=== PATIENT | female | born 1985 | race Caucasian/White ===

== ENCOUNTER → 2024-12-08 10:10 | Outpatient (CLI) | payer OTHER, SELFPAY ==
--- NOTE | 2024-12-08 10:30 | DI.US.S_ITS ---
US breast RT limited, MM diagnostic mammo BI: 12/08/2024 BI-RADS: 5 CLINICAL: 39-year old female for bilateral diagnostic mammogram and right diagnostic breast ultrasound. Tyrer-Cuzick lifetime risk of 20.1%. Current reported family history of breast cancer: mother and maternal aunt. The patient reports a palpable abnormality (less than 1 month) and pain (less than 1 month) in the right breast. PRIOR EXAMS: None. This is a baseline examination. MAMMOGRAPHY TECHNIQUE: 2D and 3D (tomosynthesis) digital mammographic views obtained, with additional images as needed for full coverage. Current study was also evaluated with a Computer Aided Detection (CAD) system. ULTRASOUND TECHNIQUE Real-time palmer scale and color doppler imaging of the area of clinical interest was performed with image documentation. Right targeted breast ultrasound of the area of clinical interest and the axilla was performed with image documentation. DENSITY B. There are scattered areas of fibroglandular density. MAMMOGRAPHY FINDINGS Right (finding-1): Outer at 9:00, Middle depth, measuring 1.9cm: Correlating with palpable lump and pain/tenderness there is a spiculated, irregular, equal- density mass present. Right (finding-2): MLO only, Axilla: There is a suspicious lymph node present. Left: No suspicious mass, asymmetry, microcalcification, or other abnormality seen. ULTRASOUND FINDINGS Right (finding-1): Upper Outer at 10:00, 7 cm from nipple, measuring 1 x 1.9 x 1.6 cm: Correlating with palpable lump and pain/tenderness and also with findings on mammogram there is an irregularly shaped, spiculated, hypoechoic mass that is non-parallel showing posterior acoustic shadowing. Doppler shows single vessel vascularity. Right (finding-2): Axilla, measuring 1.9 x 1.2 x 1.6 cm: Correlating with findings on mammogram there is a lymph node with concentric cortical thickening. Cortical thickness measures up to 0.8 cm. IMPRESSION: Right (Mass): Upper Outer at 10:00, 7 cm from nipple, measuring 1 x 1.9 x 1.6 cm * Highly Suggestive of Malignancy. Right (Lymph Node): Axilla, measuring 1.9 x 1.2 x 1.6 cm * Suspicious findings with likelihood of malignancy. Left * No evidence of malignancy. RECOMMENDATIONS Right: Upper Outer at 10:00, 7 cm from nipple * Ultrasound-guided biopsy for further evaluation. Right: Axilla * Ultrasound-guided biopsy for further evaluation. COMMENTS: Findings and recommendations were conveyed to the patient during today's evaluation over the phone by Dr. Salamanca. OVERALL ASSESSMENT CATEGORY BI-RADS-5: Highly Suggestive of Malignancy. ELECTRONICALLY SIGNED: Mami Salamanca M.D. on 12/08/2024 at 12:48:01 PM PT Interpreting Station ID: [id number]
== END ==
PROVIDERS: PCP Student in an Organized Health Care Education/Training Program; Referring Provider Student in an Organized Health Care Education/Training Program; Visit Provider Student in an Organized Health Care Education/Training Program
DX: N63.11 Unspecified lump in the right breast, upper outer quadrant (principal); R59.0 Localized enlarged lymph nodes; Z80.3 Family history of malignant neoplasm of breast; R07.89 Other chest pain
CPT/HCPCS: 72072; 76642; 77066; G0279

== ENCOUNTER → 2024-12-08 11:47 | Outpatient (CLI) | payer OTHER, SELFPAY ==
--- NOTE | 2024-12-08 11:49 | DI.RAD.S_ITS ---
PROCEDURE: XR THORACIC SPINE 3V INDICATIONS: RIB PAIN TECHNIQUE: 3 views of the thoracic spine were acquired. COMPARISON: None. FINDINGS: Bones: No fractures or dislocations. No suspicious bony lesions. 12 pairs of ribs are noted, and appear intact where visualized. Minimal degenerative disc disease. Soft tissues: No paravertebral stripe thickening. IMPRESSION: No acute bony abnormality. Dictated by: Roosevelt Edouard M.D. on 12/08/2024 at 12:21 Approved by: Roosevelt Edouard M.D. on 12/08/2024 at 12:22
== END ==
PROVIDERS: PCP Student in an Organized Health Care Education/Training Program; Referring Provider Physical Medicine & Rehabilitation; Visit Provider Physical Medicine & Rehabilitation
DX: R07.89 Other chest pain (principal)
CPT/HCPCS: 72072

== ENCOUNTER → 2024-12-23 13:09 | Outpatient (CLI) | payer OTHER, SELFPAY ==
--- NOTE | 2024-12-23 13:10 | DI.MG.S_ITS ---
MM clip placement RT: 12/23/2024. BI-RADS: None
--- NOTE | 2024-12-23 13:10 | DI.US.S_ITS ---
US biopsy RT axilla: 12/23/2024.
--- NOTE | 2024-12-23 13:10 | DI.US.S_ITS ---
Right US bx breast perc w vac device: 12/23/2024.
== END ==
LOC: US 13:09
PROVIDERS: PCP Student in an Organized Health Care Education/Training Program; Referring Provider Student in an Organized Health Care Education/Training Program; Visit Provider Student in an Organized Health Care Education/Training Program
DX: C50.411 Malignant neoplasm of upper-outer quadrant of right female breast (principal); C77.0 Secondary and unspecified malignant neoplasm of lymph nodes of head, face and neck; R92.8 Other abnormal and inconclusive findings on diagnostic imaging of breast; Z17.0 Estrogen receptor positive status [ER+]; Z17.21 Progesterone receptor positive status; Z80.3 Family history of malignant neoplasm of breast
CPT/HCPCS: 19083; 38505; 76942; 77065

== ENCOUNTER → 2025-01-23 09:17 | Outpatient (CLI) | payer OTHER, SELFPAY ==
--- NOTE | 2025-01-23 09:18 | DI.MRI.S_ITS ---
PROCEDURE: MR LUMBAR SPINE WO CON INDICATIONS: Progressive axial low back pain status post injury 2007 TECHNIQUE: Noncontrast sagittal T1 spin echo and T2 fast echo, sagittal STIR, and T2 fast spin echo through the lumbar spine. In cases with scoliosis, additional coronal T2 fast spin echo may be performed. COMPARISON: None. FINDINGS: Image quality: Diagnostic Alignment and Curvature: No spondylolisthesis Bone Marrow: No acute fracture. Disc desiccation seen at L5-S1. Spinal Cord: Cord terminates in expected position. Normal appearance of the cauda equina nerve roots. Paraspinous Soft Tissues: No significant paravertebral abnormality T12-L1: No stenosis L1-L2: No stenosis L2-L3: Mild facet arthropathy. No stenosis L3-L4: Mild facet arthropathy and small diffuse disc bulge. No stenosis L4-L5: Mild disc bulge. Moderate facet arthropathy. No stenosis. L5-S1: Annular fissure is seen at this level. Mild diffuse disc bulge and left paracentral protrusion Mild narrowing of the left subarticular recess. IMPRESSION: Mild degenerative change at L5-S1 with a left paracentral protrusion and annular fissure. No stenosis seen elsewhere. No acute fracture related edema Dictated by: David Crawford M.D. on 01/23/2025 at 9:58 Approved by: David Crawford M.D. on 01/23/2025 at 10:01
== END ==
LOC: MRI 09:17
PROVIDERS: PCP Student in an Organized Health Care Education/Training Program; Referring Provider Physical Medicine & Rehabilitation; Visit Provider Physical Medicine & Rehabilitation
DX: M51.369 Other intervertebral disc degeneration, lumbar region without mention of lumbar back pain or lower extremity pain (principal); M51.17 Intervertebral disc disorders with radiculopathy, lumbosacral region; M47.816 Spondylosis without myelopathy or radiculopathy, lumbar region; M47.27 Other spondylosis with radiculopathy, lumbosacral region; M48.07 Spinal stenosis, lumbosacral region; M51.A3 Intervertebral annulus fibrosus defect, lumbosacral region, unspecified size; Y99.0 Civilian activity done for income or pay
CPT/HCPCS: 72148